=== PATIENT | female | born 2000 | race Caucasian/White ===

== ENCOUNTER 2020-08-31 16:08 | Emergency (ER) | payer OTHER, SELFPAY ==
--- NOTE | ~2020-08-31 | US_ITS ---
EXAMINATION: US OB <=14 wk fetus w TV DATE: 08/31/2020 18:37 INDICATION: Vaginal bleeding TECHNIQUE: Real-time transabdominal and transvaginal obstetric ultrasound. FINDINGS: No prior studies for comparison. The uterus measures 10.6 x 7.2 x 6.9 cm. There is an intrauterine gestational sac, with pole id entified. The crown rump length measures 3.64 cm, which correlates with a estimated gestational age of 10 weeks 4 days. heart tones are identified measuring 169 bpm. There is a right ovarian co rpus luteal cyst. Otherwise, ovaries are unremarkable. IMPRESSION: 1. SL IUP with an EGA of 10 weeks, 4 days (EDC by current ultrasound of 03/25/2021). Reviewed, dictated and finalized at location A. IMPRESSION: 1. SL IUP with an EGA of 10 weeks, 4 days (EDC by current ultrasound of 021).
[2020-08-31 16:12] VITALS: BP 135/77; PULSE 104; RESP 18; TEMP 36.2; O2SAT 100
--- NOTE | 2020-08-31 16:26 | ED.PREGNANCY ---
HPI - General Chief complaint: Vaginal Bleeding Stated complaint: 10 wks and spotting Time Seen by Provider: 08/31/20 16:21 Source: patient Mode of arrival: ambulatory Limitations: no limitations History of Present Illness HPI Narrative: This is a 20 year old female approximately 10wks GA by LMP who presents for evaluation of vaginal bleeding. She states this afternoon she went to the rest room. She noticed bright red blood when she wiped herself with tissue . She states her bleeding has been light. She did not notice any blood when she last went to the restroom. She denies abdominal pain, back pain , lightheadedness or dizziness. She saw her OB last week and she declined an US at that time. Her OBGYN is Dr. Quiñonez. Related Data Home Medications Medication Instructions Recorded Confirmed PNV cmb#95-ferrous fumarate-FA tablet PO 08/31/20 [] aspirin [Aspirin Low Dose] 08/31/20 08/31/20 folic acid 08/31/20 progesterone micronized mg 08/31/20 Allergies Allergy/AdvReac Type Severity Reaction Status Date / Time No Known Allergies Allergy Verified 08/31/20 16:16 Review of Systems Review of Systems: All systems reviewed & are unremarkable except as noted in HPI and below PMFSH Past Medical History Medical History (Updated 08/31/20 @ 18:55 by Emelina Cardozo MD) Patient denies medical problems Social History Social History (Updated 08/31/20 @ 16:30 by Emelina Cardozo MD) Smoking status: Never smoker Gender identity (if verbalized by the patient): Female Exam Const: General: no acute distress and alert Orientation/consciousness: patient oriented x3 Eyes: EOM: EOMs intact bilaterally Resp: Effort & Inspection: normal respiratory effort and no retractions Auscultation: clear to auscultation bilaterally Cardio: Rate: regular rate Rhythm: regular rhythm Heart sounds: no murmurs GI: GI Palp: Yes Soft to palpation, No Tenderness to palpation present (GI) and No Guarding due to palpation present (GI) Auscultation: normal bowel sounds : Speculum Exam - Cervix: Cervical os closed Other: no bleeding, cervix closed Neuro: General: patient oriented x3, moves all extremities and CN's II-XI intact bilaterally Course Reevaluation(s) Reevaluation #1: I reviewed with patient US findings. She will do pelvic rest and follow up with OBGYN Date: 08/31/20 Time: 18:53 Vital Signs Vital signs: Vital Signs Temperature 97.1 F L 08/31/20 16:12 Pulse Rate 104 H 08/31/20 16:12 Respiratory Rate 18 08/31/20 16:12 Blood Pressure 135/77 08/31/20 16:12 Pulse Oximetry 100 08/31/20 16:12 Temperature 97.1 F L 08/31/20 16:12 Pulse Rate 88 08/31/20 17:11 Respiratory Rate 18 08/31/20 16:12 Blood Pressure 131/79 08/31/20 17:11 Pulse Oximetry 100 08/31/20 16:12 MDM - OB/Uterine Contractions Lab Data Attestation: I reviewed the patient's lab results. Result diagrams: 08/31/20 17:16 Labs: Lab Results 08/31/20 08/31/20 08/31/20 Range/Units 17:16 17:16 17:16 WBC 11.8 H (4.5-10.0) K/mm3 RBC 4.35 (4.2-5.4) M/mm3 Hgb 11.8 L (12.0-15.0) g/dL Hct 36.5 L (37.0-47.0) % MCV 83.9 (80-100) fl MCH 27.1 (26-34) pg MCHC 32.3 (32-36) g/dl RDW 16.8 H (11.5-14.5) % Plt Count 277 (150-375) k/mm3 MPV 9.6 (7.4-10.4) fl Immature Gran % (Auto) 0.3 (0-0.5) % Neut % (Auto) 71.1 (45.5-73.1) % Lymph % (Auto) 19.9 (18.3-44.2) % [place] % (Auto) 7.6 (2.6-8.5) % Eos % (Auto) 0.8 (0-4.4) % Baso % (Auto) 0.3 (0.2-1.2) % Lymph # (Auto) 2.35 (0.9-3.2) K/mm3 [place] # (Auto) 0.9 H (0.1-0.6) K/mm3 Eos # (Auto) 0.1 (0-0.3) K/mm3 Baso # (Auto) 0.0 (0.0-0.1) K/mm3 Abs Immat Gran (auto) 0.04 H (0.00-0.031) K/mm3 Absolute Neuts (auto) 8.4 H (1.3-6.7) K/mm3 Absolute Nucleated RBC 0.0 (0.0-0.012) K/mm3 Nucleated RBC % 0.0 (0.0-0.2)
[2020-08-31 17:08] VITALS: BP 124/81; PULSE 73
[2020-08-31 17:10] VITALS: BP 127/64; PULSE 74
[2020-08-31 17:11] VITALS: BP 131/79; PULSE 88
[2020-08-31 17:22] LABS: Basophils Percent Auto 0.3 % (0.2-1.2); Eosinophils Absolute Auto 0.1 K/mm3 (0-0.3); Eosinophils Percent Auto 0.8 % (0-4.4); Hematocrit 36.5 % (37.0-47.0); Hemoglobin 11.8 g/dL (12.0-15.0); Immature Granulocyte Absolute 0.04 K/mm3 (0.00-0.031); Immature Granulocyte Percent A 0.3 % (0-0.5); Lymphocytes Absolute Auto 2.35 K/mm3 (0.9-3.2); Lymphocytes Percent Auto 19.9 % (18.3-44.2); Mean Corpuscular HGB Conc 32.3 g/dl (32-36); Mean Corpuscular Hemoglobin 27.1 pg (26-34); Mean Corpuscular Volume 83.9 fl (80-100); Mean Platelet Volume 9.6 fl (7.4-10.4); Monocytes Absolute Auto 0.9 K/mm3 (0.1-0.6); Monocytes Percent Auto 7.6 % (2.6-8.5); Neutrophils Absolute Auto 8.4 K/mm3 (1.3-6.7); Neutrophils Percent Auto 71.1 % (45.5-73.1); Platelet Count Result 277 k/mm3 (150-375); Red Blood Count 4.35 M/mm3 (4.2-5.4); Red Cell Distribution Width 16.8 % (11.5-14.5); White Blood Count 11.8 K/mm3 (4.5-10.0)
[2020-08-31 19:10] VITALS: BP 122/84; PULSE 82; RESP 20; O2SAT 99
== END 2020-08-31 19:13 | disposition home or self-care (01) ==
PROVIDERS: Emergency Provider General Practice
DX: O20.9 Hemorrhage in early pregnancy, unspecified (principal); Z3A.10 10 weeks gestation of pregnancy
CPT/HCPCS: 36415; 76801; 76817; 81025; 84702; 85025; 85461; 99284

== ENCOUNTER 2020-09-23 13:32 | Outpatient (CLI) | payer OTHER, SELFPAY ==
--- NOTE | ~2020-09-23 | US_ITS ---
EXAMINATION: US OB follow up DATE: 09/23/2020 14:01 INDICATION: Routine care, second trimester TECHNIQUE: Real-time ultrasound of the pelvis was performed. The interpreting radiologist was not pre sent for the study. COMPARISON: 08/31/2020 FINDINGS: There is a single living fetus in variable presentation. The placenta is posterior. c ardiac activity and movement are noted. heart rate is 144 beats per minute (bpm). The amn iotic fluid index is subjectively normal. The following biometric data were obtained: Biparietal diameter (BPD): 2.5 cm; head circumference (HC): 9.7 cm; abdominal circumference (AC): 8.0 cm; femur length (FL): 1.3 cm. These measurements are concordant. Estimated weight is 91 g +/- 13 g, which correlates with the 57th percentile when 03/25/2021 is used as estimated date of delivery. As single measurements, these parameters are each equal to the following estimated gestational ages w ith ranges of +/- 2 standard deviations: BPD: 14 weeks 3 days +/- 1 weeks 1 days. HC: 14 weeks 4 days +/- 1 weeks 1 days. AC: 14 weeks 3 days +/- 1 weeks 5 days. FL: 13 weeks 6 days +/- 1 weeks 3 days. estimated gestational age based solely on measurements from this exam is 14 weeks 2 days +/- 1 weeks 0 days. IMPRESSION: 1. Single living fetus in variable presentation. 2. Estimated weight is 91 g +/- 13 g, which correlates with the 57th percentile when 03/25/2021 is used as estimated date of delivery. Reviewed, dictated and finalized at location A. IMPRESSION: 1. Single living fetus in variable presentation. 2. Estimated weight is 91 g +/- 13 g, which correlates with the 57th perc entile when 03/25/2021 is used as estimated date of delivery.
== END 2020-09-23 13:33 | disposition home or self-care (01) ==
PROVIDERS: Visit Provider Obstetrics & Gynecology
DX: Z34.92 Encounter for supervision of normal pregnancy, unspecified, second trimester (principal); Z3A.14 14 weeks gestation of pregnancy
CPT/HCPCS: 76816

== ENCOUNTER 2021-02-10 13:00 | Outpatient (CLI) | payer OTHER, SELFPAY ==
--- NOTE | ~2021-02-10 | US_ITS ---
EXAMINATION: US OB follow up EXAM DATE: 02/10/2021 13:54 INDICATION: Encounter for supervision of normal follow-up. 3rd trimester. TECHNIQUE: Pelvic obstetrical transabdominal sonogram was performed by a technologist. There are mu ltiple grayscale and Doppler images available for interpretation. Comparison is made to prior examina tion from 09/23/2020. FINDINGS: There is a single fetus identified in vertex presentation with a heart rate of 116 beats pe r minute. The placenta is located in the posterior fundal position. There is no sonographic evidence of retroplacental hemorrhage identified. AMNIOTIC FLUID INDEX Quadrant 1: 0 cm Quadrant 2: 2.1 cm Quadrant 3: 1.9 cm Quadrant 4: 2.3 cm Amniotic fluid index: 6.9 cm. (The 5th -- 95th percentile range is 8.3-24.5). BIOMETRIC DATA: Biparietal diameter (BPD): 8.4 cm ----------------> 34 weeks 0 days. Head circumference (HC): 29.6 cm ----------------> 32 weeks 5 days. Abdominal circumference (AC): 28.1 cm ----------> 32 weeks 1 day. Femur length (FL): 6.6 cm --------------------------> 33 weeks 6 days. These measurements are concordant. HC/AC ratio is 1.06 (The 5th -- 95th percentile range is 0.96-1.11. Estimated weight is 2064 g +/- 310 g. This is the 17th percentile when the currently reported clinical gestation age 33 weeks 6 days, clinical estimated date of delivery (JOB-OPE) 03/25/2021 is u sed. estimated gestational age based on measurements from this exam is 33 weeks 1 day, with an estimated date of delivery (JOB-AUA) 03/30. IMPRESSION: 1. Single fetus in vertex presentation with heart rate 116 beats per minute. 2. Estimated weight of 2064 grams, 17th percentile using the currently reported clinical gesta tion age of 33 weeks 6 days, JOB(OPE) 03/25. 3. Oligohydramnios, ANU 6.9 cm. Reviewed, dictated and finalized at location A. IMPRESSION: 1. Single fetus in vertex presentation with heart rate 116 beats per minute. 2. Estimated weight of 2064 grams, 17th percentile using the currently r eported clinical gestation age of 33 weeks 6 days, JOB(OPE) 03/25. 3. Oligohydramnios, ANU 6.9 cm.
== END 2021-02-10 13:01 | disposition home or self-care (01) ==
LOC: ANHIMG 13:06
PROVIDERS: Visit Provider Physician Assistant
DX: Z34.93 Encounter for supervision of normal pregnancy, unspecified, third trimester (principal); Z3A.33 33 weeks gestation of pregnancy
CPT/HCPCS: 76816

== ENCOUNTER 2021-02-10 23:10 | Outpatient (CLI) | payer OTHER, SELFPAY ==
[2021-02-10 23:32] VITALS: BP 118/79; PULSE 70
[2021-02-10 23:37] VITALS: TEMP 36.6
[2021-02-11] VITALS: BP 109/67; PULSE 63
[2021-02-11 00:07] LABS: Add Urine Microscopic? YES; Appearance Urine Clear (Clear); Bilirubin Urine Negative (Negative); Blood Urine Negative (Negative); Color Urine Yellow (Yellow); Glucose Urine UA 3+ mg/dL (Negative); Ketones Urine Negative (Negative); Leukocyte Esterase Ur Negative LEU/UL (NEGATIVE); Mucus Urine Heavy /lpf; Nitrate Urine Negative (Negative); Protein Urine Negative (Negative); RBC Urine 0-2 /hpf (0-2); Specific Grav Ur 1.025 (1.001-1.035); Squamous Epithelial Cell Urine Rare /hpf (Few); WBC Urine 0-3 /hpf (0-3)
[2021-02-11 00:09] LABS: Creatinine Urine 159.7 mg/dL
[2021-02-11 00:10] LABS: Alanine Aminotransferase 12 U/L (4-35); Albumin Level 3.6 g/dL (3.5-5.1); Alkaline Phosphatase 151 U/L (38-126); Anion Gap 6 mmol/L (8-16); Aspartate Amino Transferase 19 U/L (14-36); Bilirubin,Total 0.2 mg/dL (0.2-1.3); Blood Urea Nitrogen 7 mg/dL (7-17); Calcium 9.1 mg/dL (8.4-10.2); Carbon Dioxide 23 mmol/L (22-30); Chloride 108 mmol/L (98-107); Estimated Glomerular Filt Rate > 60; Glucose 119 mg/dL (65-110); Potassium 3.8 mmol/L (3.4-5.0); Sodium 137 mmol/L (137-145); Uric Acid 3.1 mg/dL (2.5-7.5)
[2021-02-11 00:16] LABS: Basophils Absolute Auto 0.1 K/mm3 (0.0-0.1); Basophils Percent Auto 0.5 % (0.2-1.2); Eosinophils Absolute Auto 0.1 K/mm3 (0-0.3); Eosinophils Percent Auto 0.9 % (0-4.4); Hematocrit 30.3 % (37.0-47.0); Hemoglobin 10.1 g/dL (12.0-15.0); Immature Granulocyte Absolute 0.26 K/mm3 (0.00-0.031); Lymphocytes Percent Auto 20.8 % (18.3-44.2); Mean Corpuscular HGB Conc 33.3 g/dl (32-36); Mean Corpuscular Hemoglobin 30.3 pg (26-34); Mean Platelet Volume 9.5 fl (7.4-10.4); Monocytes Absolute Auto 1.4 K/mm3 (0.1-0.6); Monocytes Percent Auto 10.5 % (2.6-8.5); Neutrophils Absolute Auto 8.5 K/mm3 (1.3-6.7); Neutrophils Percent Auto 65.3 % (45.5-73.1); Platelet Count Result 266 k/mm3 (150-375); Red Blood Count 3.33 M/mm3 (4.2-5.4); Red Cell Distribution Width 14.7 % (11.5-14.5)
[2021-02-11 00:30] VITALS: BP 103/59; PULSE 63
[2021-02-11 01:03] LABS: Total Protein Urine Random < 5 mg/dL; Ur Ttl Prot Creatinine Ratio < 0.03 mg/mg (0-0.20)
== END 2021-02-11 01:14 | disposition home or self-care (01) ==
LOC: ANHOBOP 23:18 → ANHOBPP 02-16 06:14
PROVIDERS: Obstetrics & Gynecology; Visit Provider Obstetrics & Gynecology
DX: R51.9 Headache, unspecified (principal); H53.8 Other visual disturbances
CPT/HCPCS: 36415; 59025; 76816; 80053; 81001; 82570; 84156; 84550; 85025; 87086; 87088; 99199

== ENCOUNTER 2021-03-18 06:18 | Inpatient (IN) | payer OTHER, SELFPAY ==
[2021-03-18] VITALS (28 sets, daily range): BP systolic 78–149; BP diastolic 41–87; PULSE 59–157; TEMP 36.5–37.1; BMI 38.1
--- NOTE | 2021-03-18 05:45 | PM.IMHP ---
H&P: HPI History of Present Illness Date/Time: 03/18/21 05:45 21 yo F with hx of MTHFR, previous miscarriage, HSV, TV, Smokimg, MDD, and methamphetamine use presents at 39w3d for elective induction of labor using pitocin protocol with favorable raymond score.I explained her condition procedure and risks involved including risks of shoulder dystocia or maternal or indications for delivery. The risks discussed include bleeding infection injury to bladder bowel baby pelvic vessels DVT pneumonia wound infection UTI the risk of anesthesia and the risk of hemorrhage. She understands all this accepts and agrees to proceed. Her care began August 2020 she had a total 18. visits she is being followed by my Physician associates and then transferred to my care the end of . was monitored with serial ultrasounds showing appropriate for gestational age growth a negative anomaly screen. Noninvasive testing showed negative genetic abnormalities with a female infant identified. She received the MTHFR treatment during her including B12 injections monthly and folic acid supplementation as well as aspirin therapy to decrease the risk -induced hypertension. She was on progesterone due to a previous miscarriage and on antiviral therapy acyclovir for her HSV. She had a positive test for drug abuse in the beginning of the but has been clean to the end of and will be retested upon admission for delivery. She had diabetes screen abnormal 153 but a 3 hour glucose tolerance test was normal. her group B strep test were all negative as well as her HIV and RPR negative. She did have Trichomonas and Linnea glabrata treated in the 3rd trimester with test of cure negative She now has a favorable cervix 2 cm 90% -2 station soft and anterior with a Raymond score of 7 we were able to use the Pitocin protocol. She is having a girl named-Ivee, she wants to try natural childbirth but she is open to epidural, she wants to bottle feed, cost specialist- SIF, PPBC- depo. Chief Complaint: term favorable Raymond score elective induction of labor Review of Systems Review of Systems: All systems reviewed & are unremarkable except as noted in HPI and below Constitutional: Constitutional: Reports no additional constitutional complaints Eyes: Eyes: Reports no additional eye complaints ENT: Reports system reviewed and no additional complaints, except as documented Cardiovascular: Cardiovascular: Reports no additional cardiovascular complaints Respiratory: Respiratory: Reports no additional respiratory complaints Gastrointestinal: Gastrointestinal: Reports no additional gastrointestinal complaints Genitourinary: Genitourinary: Reports no additional female genitourinary complaints Musculoskeletal: Musculoskeletal: Reports no additional musculoskeletal complaints Integumentary/Breasts: Skin/Breast: Reports system reviewed and no additional complaints, except as docu Neurologic: Reports system reviewed and no additional complaints, except as documented Psychiatric: Psychiatric: Reports no additional psychiatric complaints Endocrine: Endocrine: Reports no additional endocrine complaints Hematologic/Lymphatic: Hematologic/Lymphatic: Reports no additional hematologic/lymphatic complaints Allergic/Immunologic: Allergic/Immunologic: Reports no additional allergic/immunologic complaints PMFSH Past Medical History Medical History Generalized anxiety disorder Genital HSV on acyclovir antiviral therapy Heterozygous MTHFR mutation [id number] History of candidiasis of vagina Linnea glabrata History of methamphetamine use denies use states exposed at home from mother History of miscarriage 01/11/[id number], Spontaneous no D&C required History of trichomonal vaginitis Major depressive disorder Smoker Family History Family History (Updated 03/10/21 @ 15:35
--- NOTE | 2021-03-18 06:03 | WPDHPUPDATE1 ---
History and Physical Update Update Date/Time: 03/18/21 06:03 History and Physical has been reviewed, including an updated exam of the patient. There are NO changes in the patient's condition. Risks, benefits, and alternatives have been discussed and questions answered. Patient agrees to proceed with procedure. 21 yo F with hx of MTHFR, previous miscarriage, HSV, TV, Smokimg, MDD, and methamphetamine use presents at 39w3d for elective induction of labor using pitocin protocol with favorable raymond score.I explained her condition procedure and risks involved including risks of shoulder dystocia or maternal or indications for delivery. The risks discussed include bleeding infection injury to bladder bowel baby pelvic vessels DVT pneumonia wound infection UTI the risk of anesthesia and the risk of hemorrhage. She understands all this accepts and agrees to proceed. Her care began August 2020 she had a total 18. visits she is being followed by my Physician associates and then transferred to my care the end of . was monitored with serial ultrasounds showing appropriate for gestational age growth a negative anomaly screen. Noninvasive testing showed negative genetic abnormalities with a female identified. She received the MTHFR treatment during her including B12 injections monthly and folic acid supplementation as well as aspirin therapy to decrease the risk -induced hypertension. She was on progesterone due to a previous miscarriage and on antiviral therapy acyclovir for her HSV. She had a positive test for drug abuse in the beginning of the but has been clean to the end of and will be retested upon admission for delivery. She had diabetes screen abnormal 153 but a 3 hour glucose tolerance test was normal. her group B strep test were all negative as well as her HIV and RPR negative. She did have Trichomonas and Linnea glabrata treated in the 3rd trimester with test of cure negative She now has a favorable cervix 2 cm 90% -2 station soft and anterior with a Raymond score of 7 we were able to use the Pitocin protocol. 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
--- NOTE | 2021-03-18 08:00 | LDADM ---
This patient, Azucena Nolen, was admitted to Labor/Delivery/Recovery 103 on 03/18/21 at 06:18. Plans for labor, pain management and were discussed with patient. Patient/family oriented to hospital policies and general routines including ID bracelet, bed and alarms, visiting hours, pain management, procedures, bathroom and other care routines, personal items, smoking policy, room service/diet and guest tray routines, security routines, and visiting hours. Patient/Family are encouraged to report perceived risks to care and to ask questions if they do not understand what they are told or what they should do. See OBIX for further documentation.
[2021-03-18] MEDS: LACTATED RINGERS 1,000 ML 125 ML IV CONT ×2 (08:11→15:41)
[2021-03-18] MEDS: OXYTOCIN 30 UNITS/NS 500 ML 30 UNITS/500 ML BAG 4 UNITS IV CONT (08:16)
[2021-03-18 08:26] LABS: Basophils Absolute Auto 0.1 K/mm3 (0.0-0.1); Basophils Percent Auto 0.6 % (0.2-1.2); Eosinophils Absolute Auto 0.1 K/mm3 (0-0.3); Eosinophils Percent Auto 0.9 % (0-4.4); Hematocrit 31.8 % (37.0-47.0); Hemoglobin 10.4 g/dL (12.0-15.0); Immature Granulocyte Absolute 0.12 K/mm3 (0.00-0.031); Immature Granulocyte Percent A 1.2 % (0-0.5); Lymphocytes Absolute Auto 1.91 K/mm3 (0.9-3.2); Lymphocytes Percent Auto 18.6 % (18.3-44.2); Mean Corpuscular HGB Conc 32.7 g/dl (32-36); Mean Corpuscular Hemoglobin 28.6 pg (26-34); Mean Corpuscular Volume 87.4 fl (80-100); Mean Platelet Volume 9.6 fl (7.4-10.4); Monocytes Absolute Auto 1.1 K/mm3 (0.1-0.6); Monocytes Percent Auto 10.6 % (2.6-8.5); Neutrophils Percent Auto 68.1 % (45.5-73.1); Platelet Count Result 299 k/mm3 (150-375); Red Blood Count 3.64 M/mm3 (4.2-5.4); Red Cell Distribution Width 15.3 % (11.5-14.5); White Blood Count 10.3 K/mm3 (4.5-10.0)
[2021-03-18 10:19] LABS: Amphetamine Screen Urine Negative (Negative); Barbiturate Screen Urine Negative (Negative); Benzodiazepines Screen Urine Negative (Negative); Cannabinoid Screen Urine Positive (Negative); Cocaine Screen Urine Negative (Negative); Methadone Screen Urine Negative (Negative); Opiate Screen Urine Negative (Negative); Phencyclidine Screen Urine Negative (Negative)
[2021-03-19 06:22] LABS: Rapid Plasma Reagin Non-Reactive (NonReactive)
--- NOTE | 2021-03-20 10:26 | PM.OBTRLD ---
OB - Triage/Final Diagnosis Visit Information Comments/Additional reasons for admission: I have assessed the risk for this patient, Azucena Nolen, and determined that she would benefit from observation care. Evaluation Laboratory results: Laboratory Tests 03/18/21 03/18/21 03/18/21 07:49 07:49 07:49 WBC 10.3 H RBC 3.64 L Hgb 10.4 L Hct 31.8 L MCV 87.4 MCH 28.6 MCHC 32.7 RDW 15.3 H Plt Count 299 MPV 9.6 Immature Gran % (Auto) 1.2 H Neut % (Auto) 68.1 Lymph % (Auto) 18.6 [place] % (Auto) 10.6 H Eos % (Auto) 0.9 Baso % (Auto) 0.6 Lymph # (Auto) 1.91 [place] # (Auto) 1.1 H Eos # (Auto) 0.1 Baso # (Auto) 0.1 Abs Immat Gran (auto) 0.12 H Absolute Neuts (auto) 7.0 H Absolute Nucleated RBC 0.0 Nucleated RBC % 0.0 Urine Opiates Screen Urine Methadone Screen Ur Barbiturates Screen Ur Phencyclidine Scrn Ur Amphetamine Screen U Benzodiazepines Scrn Urine Cocaine Screen U Cannabinoids Screen RPR Non-reactive Blood Type O Positive Antibody Screen Negative 03/18/21 07:49 WBC RBC Hgb Hct MCV MCH MCHC RDW Plt Count MPV Immature Gran % (Auto) Neut % (Auto) Lymph % (Auto) [place] % (Auto) Eos % (Auto) Baso % (Auto) Lymph # (Auto) [place] # (Auto) Eos # (Auto) Baso # (Auto) Abs Immat Gran (auto) Absolute Neuts (auto) Absolute Nucleated RBC Nucleated RBC % Urine Opiates Screen Negative Urine Methadone Screen Negative Ur Barbiturates Screen Negative Ur Phencyclidine Scrn Negative Ur Amphetamine Screen Negative U Benzodiazepines Scrn Negative Urine Cocaine Screen Negative U Cannabinoids Screen Positive A RPR Blood Type Antibody Screen Final Diagnosis (1) Failed induction: Code(s): O61.9 - Failed induction of labor, unspecified Status: Acute
--- NOTE | 2021-04-07 16:30 | P.DS_ITS ---
DS: Admitting Diagnosis Discharge Date 03/18/21 Admitting Diagnosis OB - DS: Summary OB Procedures : None OB Procedures Intrapartum: Spontaneous Vag Delivery OB Procedures: : None Time Spent with Patient Time attestation: Total time spent providing and/or coordinating discharge services: Discharge Plan Discharge Attending physician on discharge: aJyce Daniels Discharging Clinician: Jayce Daniels Patient Disposition: Home, Self-Care Activity: as tolerated Diet: as tolerated Discharge Instructions: OB ANTEPARTUM DISCHARGE INSTRUCTIONS This information is given to help you properly care for yourself at home after your discharge from the hospital. Follow these instructions until your doctor tells you otherwise. DIET: Eat Three Well Balanced Meals per Day Drink at Least Eight 8-Ounce Glasses of Caffeine-Free Beverages Daily ACTIVITY: As Tolerated RETURN TO LABOR AND DELIVERY IF YOU HAVE: Any Change In Baby's Normal Movement Pattern Contractions 3-5 Minutes Apart with Increasing Intensity Vaginal Bleeding Contractions may feel like abdominal pain, tightening, cramping, pressure, back ache, or thigh ache. FOLLOW-UP CARE: Call Office and Make Appointment To see Call Dr. Quiñonez's office in am to schedule follow-up appt Valuables released to patient or family? N/A Medications from home returned to patient? N/A I Have Received Information Regarding Effective Home Pain Management I Acknowledge Receipt of and Understand the Above Instructions IF YOU HAVE ANY QUESTIONS REGARDING THESE INSTRUCTIONS, PLEASE CALL [phone]. IF PROBLEMS ARISE, CALL YOUR PROVIDER. IF EMERGENCY CARE IS NEEDED, [facility]S EMERGENCY ROOM IS AVAILABLE 24 HOURS A DAY. Patient Instructions: Antibiotic Form Stand Alone Forms: General Discharge Information Follow-up/Referrals: Brian Quiñonez MD [Physician] - Discharge Medications: Continued escitalopram oxalate 10 mg Tablet 10 mg PO BID RF: 0 PNV cmb#95-ferrous fumarate-FA [] 28 mg iron- 800 mcg tablet 1 tablet PO DAILY RF: 0 No Action ibuprofen 600 mg Tablet 600 mg PO Q6H PRN (Reason: Cramping) Qty: 30 RF: 0 Date of admission: 03/18/21 06:18 Primary Care Provider: PHYSICIAN,BUSINESS ANALYST MANAGER Admitting Provider: Brian Quiñonez Attending physician on admission: Jayce Daniels Condition: Stable
--- NOTE | 2021-04-09 07:31 | PM.OBDSVD ---
DS: Admitting Diagnosis Discharge Date 03/18/21 Admitting Diagnosis OB - DS: Summary OB Procedures : None OB Procedures Intrapartum: Spontaneous Vag Delivery OB Procedures: : None Time Spent with Patient Time attestation: Total time spent providing and/or coordinating discharge services: Discharge Plan Discharge Attending physician on discharge: Jayce Daniels Discharging Clinician: Jayce Daniels Patient Disposition: Home, Self-Care Activity: as tolerated Diet: as tolerated Discharge Instructions: OB ANTEPARTUM DISCHARGE INSTRUCTIONS This information is given to help you properly care for yourself at home after your discharge from the hospital. Follow these instructions until your doctor tells you otherwise. DIET: Eat Three Well Balanced Meals per Day Drink at Least Eight 8-Ounce Glasses of Caffeine-Free Beverages Daily ACTIVITY: As Tolerated RETURN TO LABOR AND DELIVERY IF YOU HAVE: Any Change In Baby's Normal Movement Pattern Contractions 3-5 Minutes Apart with Increasing Intensity Vaginal Bleeding Contractions may feel like abdominal pain, tightening, cramping, pressure, back ache, or thigh ache. FOLLOW-UP CARE: Call Office and Make Appointment To see Call Dr. Quiñonez's office in am to schedule follow-up appt Valuables released to patient or family? N/A Medications from home returned to patient? N/A I Have Received Information Regarding Effective Home Pain Management I Acknowledge Receipt of and Understand the Above Instructions IF YOU HAVE ANY QUESTIONS REGARDING THESE INSTRUCTIONS, PLEASE CALL [phone]. IF PROBLEMS ARISE, CALL YOUR PROVIDER. IF EMERGENCY CARE IS NEEDED, [facility] EMERGENCY ROOM IS AVAILABLE 24 HOURS A DAY. Patient Instructions: Antibiotic Form Stand Alone Forms: General Discharge Information Follow-up/Referrals: Brian Quiñonez MD [Physician] - Discharge Medications: Continued escitalopram oxalate 10 mg Tablet 10 mg PO BID RF: 0 PNV cmb#95-ferrous fumarate-FA [] 28 mg iron- 800 mcg tablet 1 tablet PO DAILY RF: 0 No Action ibuprofen 600 mg Tablet 600 mg PO Q6H PRN (Reason: Cramping) Qty: 30 RF: 0 Date of admission: 03/18/21 06:18 Primary Care Provider: PHYSICIAN,MOTION PICTURE CRITIC Admitting Provider: Brian Quiñonez Attending physician on admission: Jayce Daniels Condition: Stable
--- NOTE | 2021-04-11 08:39 | P.DS_ITS ---
DS: Admitting Diagnosis Discharge Date 03/18/21 Admitting Diagnosis OB - DS: Summary OB Procedures : None OB Procedures Intrapartum: Spontaneous Vag Delivery OB Procedures: : None Time Spent with Patient Time attestation: Total time spent providing and/or coordinating discharge services: Discharge Plan Discharge Attending physician on discharge: Jayce Daniels Discharging Clinician: Jayce Daniels Patient Disposition: Home, Self-Care Activity: as tolerated Diet: as tolerated Discharge Instructions: OB ANTEPARTUM DISCHARGE INSTRUCTIONS This information is given to help you properly care for yourself at home after your discharge from the hospital. Follow these instructions until your doctor tells you otherwise. DIET: Eat Three Well Balanced Meals per Day Drink at Least Eight 8-Ounce Glasses of Caffeine-Free Beverages Daily ACTIVITY: As Tolerated RETURN TO LABOR AND DELIVERY IF YOU HAVE: Any Change In Baby's Normal Movement Pattern Contractions 3-5 Minutes Apart with Increasing Intensity Vaginal Bleeding Contractions may feel like abdominal pain, tightening, cramping, pressure, back ache, or thigh ache. FOLLOW-UP CARE: Call Office and Make Appointment To see Call Dr. Quiñonez's office in am to schedule follow-up appt Valuables released to patient or family? N/A Medications from home returned to patient? N/A I Have Received Information Regarding Effective Home Pain Management I Acknowledge Receipt of and Understand the Above Instructions IF YOU HAVE ANY QUESTIONS REGARDING THESE INSTRUCTIONS, PLEASE CALL [phone]. IF PROBLEMS ARISE, CALL YOUR PROVIDER. IF EMERGENCY CARE IS NEEDED, [facility] EMERGENCY ROOM IS AVAILABLE 24 HOURS A DAY. Patient Instructions: Antibiotic Form Stand Alone Forms: General Discharge Information Follow-up/Referrals: Brian Quiñonez MD [Physician] - Discharge Medications: Continued escitalopram oxalate 10 mg Tablet 10 mg PO BID RF: 0 PNV cmb#95-ferrous fumarate-FA [] 28 mg iron- 800 mcg tablet 1 tablet PO DAILY RF: 0 No Action ibuprofen 600 mg Tablet 600 mg PO Q6H PRN (Reason: Cramping) Qty: 30 RF: 0 Date of admission: 03/18/21 06:18 Primary Care Provider: PHYSICIAN,SLIPCOVER CUTTER Admitting Provider: Brian Quiñonez Attending physician on admission: Jayce Daniels Condition: Stable
--- NOTE | 2021-04-15 08:14 | PM.OBTRLD ---
OB - Triage/Final Diagnosis Visit Information Reason for evaluation: decreased movement Comments/Additional reasons for admission: I have assessed the risk for this patient, Azucena Nolen, and determined that she would benefit from observation care. Evaluation Laboratory results: Laboratory Tests 03/18/21 03/18/21 03/18/21 07:49 07:49 07:49 WBC 10.3 H RBC 3.64 L Hgb 10.4 L Hct 31.8 L MCV 87.4 MCH 28.6 MCHC 32.7 RDW 15.3 H Plt Count 299 MPV 9.6 Immature Gran % (Auto) 1.2 H Neut % (Auto) 68.1 Lymph % (Auto) 18.6 [place] % (Auto) 10.6 H Eos % (Auto) 0.9 Baso % (Auto) 0.6 Lymph # (Auto) 1.91 [place] # (Auto) 1.1 H Eos # (Auto) 0.1 Baso # (Auto) 0.1 Abs Immat Gran (auto) 0.12 H Absolute Neuts (auto) 7.0 H Absolute Nucleated RBC 0.0 Nucleated RBC % 0.0 Urine Opiates Screen Urine Methadone Screen Ur Barbiturates Screen Ur Phencyclidine Scrn Ur Amphetamine Screen U Benzodiazepines Scrn Urine Cocaine Screen U Cannabinoids Screen RPR Non-reactive Blood Type O Positive Antibody Screen Negative 03/18/21 07:49 WBC RBC Hgb Hct MCV MCH MCHC RDW Plt Count MPV Immature Gran % (Auto) Neut % (Auto) Lymph % (Auto) [place] % (Auto) Eos % (Auto) Baso % (Auto) Lymph # (Auto) [place] # (Auto) Eos # (Auto) Baso # (Auto) Abs Immat Gran (auto) Absolute Neuts (auto) Absolute Nucleated RBC Nucleated RBC % Urine Opiates Screen Negative Urine Methadone Screen Negative Ur Barbiturates Screen Negative Ur Phencyclidine Scrn Negative Ur Amphetamine Screen Negative U Benzodiazepines Scrn Negative Urine Cocaine Screen Negative U Cannabinoids Screen Positive A RPR Blood Type Antibody Screen
--- NOTE | 2021-04-21 09:27 | PM.OBTRLD ---
OB - Triage/Final Diagnosis Visit Information Reason for evaluation: threatened labor Comments/Additional reasons for admission: I have assessed the risk for this patient, Azucena Nolen, and determined that she would benefit from observation care. Evaluation Laboratory results: Laboratory Tests 03/18/21 03/18/21 03/18/21 07:49 07:49 07:49 WBC 10.3 H RBC 3.64 L Hgb 10.4 L Hct 31.8 L MCV 87.4 MCH 28.6 MCHC 32.7 RDW 15.3 H Plt Count 299 MPV 9.6 Immature Gran % (Auto) 1.2 H Neut % (Auto) 68.1 Lymph % (Auto) 18.6 [place] % (Auto) 10.6 H Eos % (Auto) 0.9 Baso % (Auto) 0.6 Lymph # (Auto) 1.91 [place] # (Auto) 1.1 H Eos # (Auto) 0.1 Baso # (Auto) 0.1 Abs Immat Gran (auto) 0.12 H Absolute Neuts (auto) 7.0 H Absolute Nucleated RBC 0.0 Nucleated RBC % 0.0 Urine Opiates Screen Urine Methadone Screen Ur Barbiturates Screen Ur Phencyclidine Scrn Ur Amphetamine Screen U Benzodiazepines Scrn Urine Cocaine Screen U Cannabinoids Screen RPR Non-reactive Blood Type O Positive Antibody Screen Negative 03/18/21 07:49 WBC RBC Hgb Hct MCV MCH MCHC RDW Plt Count MPV Immature Gran % (Auto) Neut % (Auto) Lymph % (Auto) [place] % (Auto) Eos % (Auto) Baso % (Auto) Lymph # (Auto) [place] # (Auto) Eos # (Auto) Baso # (Auto) Abs Immat Gran (auto) Absolute Neuts (auto) Absolute Nucleated RBC Nucleated RBC % Urine Opiates Screen Negative Urine Methadone Screen Negative Ur Barbiturates Screen Negative Ur Phencyclidine Scrn Negative Ur Amphetamine Screen Negative U Benzodiazepines Scrn Negative Urine Cocaine Screen Negative U Cannabinoids Screen Positive A RPR Blood Type Antibody Screen
== END 2021-03-18 17:46 | disposition home or self-care (01) | DRG 566 ==
PROVIDERS: Admitting Provider Obstetrics & Gynecology; Visit Provider Obstetrics & Gynecology
DX: O61.9 Failed induction of labor, unspecified (principal); Z3A.39 39 weeks gestation of pregnancy; O99.333 Smoking (tobacco) complicating pregnancy, third trimester; F17.210 Nicotine dependence, cigarettes, uncomplicated; O98.313 Other infections with a predominantly sexual mode of transmission complicating pregnancy, third trimester; A60.00 Herpesviral infection of urogenital system, unspecified; O99.283 Endocrine, nutritional and metabolic diseases complicating pregnancy, third trimester; E72.12 Methylenetetrahydrofolate reductase deficiency
CPT/HCPCS: 36415; 80307; 85025; 86592; 86850; 86900; 86901; J2590; J7120

== ENCOUNTER 2021-03-24 11:44 | Inpatient (IN) | payer OTHER, SELFPAY ==
[2021-03-24] VITALS (57 sets, daily range): BP systolic 99–149; BP diastolic 57–107; PULSE 62–150; RESP 18; TEMP 36.3–36.8; O2SAT 95–100; BMI 38.2
[2021-03-24] MEDS: LACTATED RINGERS 1,000 ML 125 ML IV CONT ×2 (12:30→13:15)
[2021-03-24 12:33] LABS: Basophils Absolute Auto 0.1 K/mm3 (0.0-0.1); Basophils Percent Auto 0.4 % (0.2-1.2); Eosinophils Absolute Auto 0.1 K/mm3 (0-0.3); Eosinophils Percent Auto 0.6 % (0-4.4); Hematocrit 34.8 % (37.0-47.0); Hemoglobin 11.3 g/dL (12.0-15.0); Immature Granulocyte Absolute 0.13 K/mm3 (0.00-0.031); Lymphocytes Absolute Auto 1.83 K/mm3 (0.9-3.2); Lymphocytes Percent Auto 14.6 % (18.3-44.2); Mean Corpuscular HGB Conc 32.5 g/dl (32-36); Mean Corpuscular Hemoglobin 28.8 pg (26-34); Mean Corpuscular Volume 88.5 fl (80-100); Mean Platelet Volume 9.3 fl (7.4-10.4); Monocytes Absolute Auto 1.1 K/mm3 (0.1-0.6); Neutrophils Absolute Auto 9.3 K/mm3 (1.3-6.7); Neutrophils Percent Auto 74.4 % (45.5-73.1); Platelet Count Result 295 k/mm3 (150-375); Red Blood Count 3.93 M/mm3 (4.2-5.4); Red Cell Distribution Width 15.4 % (11.5-14.5); White Blood Count 12.5 K/mm3 (4.5-10.0)
--- NOTE | 2021-03-24 12:50 | LDADM ---
This patient, Azucena Nolen, was admitted to Labor/Delivery/Recovery 106 on 03/24/21 at 11:44. Plans for labor, pain management and were discussed with patient. Patient/family oriented to hospital policies and general routines including ID bracelet, bed and alarms, visiting hours, pain management, procedures, bathroom and other care routines, personal items, smoking policy, room service/diet and guest tray routines, security routines, and visiting hours. Patient/Family are encouraged to report perceived risks to care and to ask questions if they do not understand what they are told or what they should do. See OBIX for further documentation.
--- NOTE | 2021-03-24 13:24 | WPDANESEPP ---
Anes - Eval Pre Procedure Procedure: Labor pain management Date/Time: 03/24/21 13:24 Surgeon: Jeremiah Preop Diagnosis: Pain during labor Pre Op Diagnosis: contractions Patient Data Age: 21 Gender: F Height: 1.6 m Weight: 98 kg Last Vital Signs Pulse 88 03/24/21 13:01 BP 133/88 03/24/21 13:01 Allergies Allergy/AdvReac Type Severity Reaction Status Date / Time No Known Allergies Allergy Verified 08/31/20 16:16 Home Medications Medication Instructions Recorded Confirmed Type PNV cmb#95-ferrous fumarate-FA 1 tablet PO DAILY 08/31/20 03/24/21 History [] acyclovir 800 mg PO DAILY 02/10/21 03/24/21 History escitalopram oxalate 10 mg PO BID 03/10/21 03/24/21 History acetaminophen [Tylenol] 650 mg PO Q4H PRN 03/18/21 03/18/21 History Laboratory Tests 03/24/21 03/24/21 03/24/21 12:26 12:26 12:26 WBC 12.5 K/mm3 H K/mm3 (4.5-10.0) RBC 3.93 M/mm3 L M/mm3 (4.2-5.4) Hgb 11.3 g/dL L g/dL (12.0-15.0) Hct 34.8 % L % (37.0-47.0) MCV 88.5 fl fl (80-100) MCH 28.8 pg pg (26-34) MCHC 32.5 g/dl g/dl (32-36) RDW 15.4 % H % (11.5-14.5) Plt Count 295 k/mm3 k/mm3 (150-375) MPV 9.3 fl fl (7.4-10.4) Immature Gran % (Auto) 1.0 % H % (0-0.5) Neut % (Auto) 74.4 % H % (45.5-73.1) Lymph % (Auto) 14.6 % L % (18.3-44.2) [place] % (Auto) 9.0 % H % (2.6-8.5) Eos % (Auto) 0.6 % % (0-4.4) Baso % (Auto) 0.4 % % (0.2-1.2) Lymph # (Auto) 1.83 K/mm3 K/mm3 (0.9-3.2) [place] # (Auto) 1.1 K/mm3 H K/mm3 (0.1-0.6) Eos # (Auto) 0.1 K/mm3 K/mm3 (0-0.3) Baso # (Auto) 0.1 K/mm3 K/mm3 (0.0-0.1) Abs Immat Gran (auto) 0.13 K/mm3 H K/mm3 (0.00-0.031) Absolute Neuts (auto) 9.3 K/mm3 H K/mm3 (1.3-6.7) Absolute Nucleated RBC 0.0 K/mm3 K/mm3 (0.0-0.012) Nucleated RBC % 0.0 % % (0.0-0.2) RPR Pending Blood Type Pending Antibody Screen Pending : gestational age (EDC 03/22/21) Patient hx anesthesia problems: none Family hx anesthesia problems: none Results Review: All pre-operative results and documents have been reviewed as part of the pre-operative evaluation. 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 Heterozygous MTHFR mutation [id number] History of candidiasis of vagina Linnea glabrata History of methamphetamine use denies use states exposed at home from mother History of miscarriage 01/11/[id number], Spontaneous no D&C required History of trichomonal vaginitis Major depressive disorder Smoker Family History Family History Grandparent Heart disease Sibling PTSD (post-traumatic stress disorder) Anxiety Depression Bipolar 1 disorder Mother Diabetes mellitus type 2, diet-controlled Social History Social History Smoking packs per day: 0.25 Smoking cigarettes per day: 5.0 Years smoked: 6 Smoking pack-years: 1.50 Smoking status: Never smoker Tobacco type: cigarettes Second hand tobacco smoke exposure: Yes Substance use: current Substance use type: marijuana and methamphetamine Other substance usage details: Denies using Methamphetamine- states her mom uses; pt was living with mom Last use: Marijuana on 03/17/21 Additional occupation/education comments: 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
[2021-03-24] MEDS: fentaNYL CITRATE INJ (*CRX) 100 MCG/2 ML VIAL 50 MCG IV PUSH (13:27)
[2021-03-24 13:56] LABS: Amphetamine Screen Urine Negative (Negative); Barbiturate Screen Urine Negative (Negative); Benzodiazepines Screen Urine Negative (Negative); Cannabinoid Screen Urine Positive (Negative); Cocaine Screen Urine Negative (Negative); Methadone Screen Urine Negative (Negative); Opiate Screen Urine Negative (Negative); Phencyclidine Screen Urine Negative (Negative)
--- NOTE | 2021-03-24 15:37 | P.PCNOB_ITS ---
OB - Delivery Note Procedure Route of delivery: Episiotomy description: None Laceration Description: Vaginal - 1st Degree Delivery repair: chromic Specimen: Yes Quantitative Blood Loss (ml): 100 Anesthesia type: Epidural Disposition: floor Narrative: Patient prepped and draped in usual sterile manner for this procedu re. Maternal expulsive efforts readily delivered vertex rest of baby without difficulty. Cord clamped cut placenta delivered spontaneously. Cervix vagina vulva were inspected with no lacerations or tears of significance. There was a small area of separation the vaginal wall which was rendered hemostatic using a [id number] of 2-0 chromic suture. Immediate postoperative condition of mother baby were both excellent. Baby Weeks of gestation at delivery: 40 Infant gender: Female Weight (pounds): 6 Weight (ounces): 1 score one minute: 8 score five minutes: 9
--- NOTE | 2021-03-24 15:37 | WPDOBADMIT ---
Obstetrics - Admit Note Admission Note: record reviewed. No pertinent additions to the history and/or any subsequent changes in the physical findings that are not consistent with the expected course of the were found. Additions to the history and/or subsequent changes in the physical findings follow. None.
--- NOTE | 2021-03-24 15:37 | WPDHPUPDATE1 ---
History and Physical Update Update Date/Time: 03/24/21 15:37 History and Physical has been reviewed, including an updated exam of the patient. There are NO changes in the patient's condition. Risks, benefits, and alternatives have been discussed and questions answered. Patient agrees to proceed with procedure.
[2021-03-24] MEDS: OXYTOCIN 30 UNITS/NS 500 ML 30 UNITS/500 ML BAG 125 UNITS IV CONT (16:03)
[2021-03-24] MEDS: BENZOCAINE 20% AER SPR (*SP) 56 GM CAN 1 SPRAY TOPICAL (17:34)
[2021-03-24] MEDS: LORATADINE 10 MG TABLET PO (17:34)
[2021-03-24] MEDS: WITCH HAZEL 40 PADS 1 PAD TOPICAL (17:34)
[2021-03-24] MEDS: ESCITALOPRAM OXALATE 10 MG TABLET PO (19:35)
[2021-03-25 00:11] VITALS: BP 147/84; PULSE 84; RESP 18; TEMP 36.7; O2SAT 98
[2021-03-25 04:15] VITALS: BP 123/78; PULSE 67; RESP 18; TEMP 36.6; O2SAT 97
[2021-03-25 04:50] LABS: Hemoglobin 9.8 g/dL (12.0-15.0)
[2021-03-25 06:24] LABS: Rapid Plasma Reagin Non-Reactive (NonReactive)
[2021-03-25 07:45] VITALS: BP 129/74; PULSE 78; RESP 18; TEMP 36.5; O2SAT 18
[2021-03-25] MEDS: DOCUSATE SODIUM 100 MG CAPSULE PO ×2 (07:54→17:39)
[2021-03-25] MEDS: POLYSACCHARIDE IRON COMPLEX 150 MG CAPSULE PO ×2 (07:54→17:39)
[2021-03-25] MEDS: ESCITALOPRAM OXALATE 10 MG TABLET PO ×2 (07:56→17:39)
[2021-03-25] MEDS: IBUPROFEN 600 MG TABLET PO ×2 (07:56→17:40)
--- NOTE | 2021-03-25 09:34 | PM.OBDSVD ---
DS: Admitting Diagnosis Discharge Date 03/26/2021 Admitting Diagnosis OB - DS: Summary OB Procedures : None OB Procedures Intrapartum: Spontaneous Vag Delivery OB Procedures: : None Time Spent with Patient Time attestation: Total time spent providing and/or coordinating discharge services: DS: Data Data Completed and Pending Pending studies at discharge: Pending at discharge 03/24/21 15:31 Surgical [PTH] Routine Labs on day of discharge: Labs from last 24 hours 03/25/21 03/24/21 03/24/21 03:36 13:13 12:26 WBC RBC Hgb 9.8 L Hct 31.0 L MCV MCH MCHC RDW Plt Count MPV Immature Gran % (Auto) Neut % (Auto) Lymph % (Auto) [place] % (Auto) Eos % (Auto) Baso % (Auto) Lymph # (Auto) [place] # (Auto) Eos # (Auto) Baso # (Auto) Abs Immat Gran (auto) Absolute Neuts (auto) Absolute Nucleated RBC Nucleated RBC % Urine Opiates Screen Negative Urine Methadone Screen Negative Ur Barbiturates Screen Negative Ur Phencyclidine Scrn Negative Ur Amphetamine Screen Negative U Benzodiazepines Scrn Negative Urine Cocaine Screen Negative U Cannabinoids Screen Positive A RPR Blood Type O Positive Antibody Screen Negative 03/24/21 03/24/21 12:26 12:26 WBC 12.5 H RBC 3.93 L Hgb 11.3 L Hct 34.8 L MCV 88.5 MCH 28.8 MCHC 32.5 RDW 15.4 H Plt Count 295 MPV 9.3 Immature Gran % (Auto) 1.0 H Neut % (Auto) 74.4 H Lymph % (Auto) 14.6 L Roberts % (Auto) 9.0 H Eos % (Auto) 0.6 Baso % (Auto) 0.4 Lymph # (Auto) 1.83 [place] # (Auto) 1.1 H Eos # (Auto) 0.1 Baso # (Auto) 0.1 Abs Immat Gran (auto) 0.13 H Absolute Neuts (auto) 9.3 H Absolute Nucleated RBC 0.0 Nucleated RBC % 0.0 Urine Opiates Screen Urine Methadone Screen Ur Barbiturates Screen Ur Phencyclidine Scrn Ur Amphetamine Screen U Benzodiazepines Scrn Urine Cocaine Screen U Cannabinoids Screen RPR Non-reactive Blood Type Antibody Screen Discharge Plan Discharge Discharging Clinician: Jayce Daniels Patient Disposition: Home, Self-Care Activity: as tolerated Diet: as tolerated Patient Instructions: Antibiotic Form Stand Alone Forms: General Discharge Information Follow-up/Referrals: Jayce Daniels MD [Physician] - 3 Weeks Discharge Medications: New ibuprofen 600 mg Tablet 600 mg PO Q6H PRN (Reason: Cramping) Qty: 30 RF: 0 Continued escitalopram oxalate 10 mg Tablet 10 mg PO BID RF: 0 PNV cmb#95-ferrous fumarate-FA [] 28 mg iron- 800 mcg tablet 1 tablet PO DAILY RF: 0 Discontinued acyclovir 800 mg tablet 800 mg PO DAILY RF: 0 acetaminophen [Tylenol] 325 mg Capsule 650 mg PO Q4H PRN (Reason: Pain) RF: 0 Date of admission: 03/24/21 11:44 Primary Care Provider: PHYSICIAN,FLORAL DESIGNER SALESPERSON Admitting Provider: Jayce Daniels Attending physician on admission: Jayce Daniels Condition: Stable
--- NOTE | 2021-03-25 09:56 | WPDANLDPN2 ---
Anes-Prog Note L&D Date/Time: 03/25/21 09:56 Comfortable throughout: labor and delivery Neuraxial method: epidural Epidural/Spinal procedure site: clean & non-tender Neuro status: Neuro function grossly intact. Cardiovascular status: normal Respiratory status: normal Airway patency: baseline Mental status: baseline Post-Op hydration status: normal Vital Signs: Last Vital Signs Temp 36.5 C 03/25/21 07:45 Pulse 78 03/25/21 07:45 Resp 18 03/25/21 07:45 BP 129/74 03/25/21 07:45 Pulse Ox 18 L 03/25/21 07:45 Pain score (VAS): 0 I/O: Intake & Output 03/24/21 03/25/21 03/25/21 23:59 07:59 15:59 Output Total 75 Balance -75 Post-procedural complaints: none Patient feedback: Patient satisfied with anesthetic care.
[2021-03-25] MEDS: ACETAMINOPHEN 325 MG TABLET 650 MG PO (11:03)
--- NOTE | 2021-03-25 11:16 | PC.NURSE ---
Patient viewed the discharge video Mother & Baby Care, The First Two Weeks . Patient was given the opportunity and encouraged to ask questions. Patient verbalized understanding of information shared and has been given the mother/baby guide for home reference.
[2021-03-25 12:13] VITALS: BP 133/59; PULSE 89; RESP 16; TEMP 36.6; O2SAT 99
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
[2021-03-25 20:27] VITALS: BP 138/85; PULSE 71; RESP 18; TEMP 36.6; O2SAT 100
[2021-03-26 08:20] VITALS: BP 131/74; PULSE 70; RESP 16; TEMP 36.7; O2SAT 100
[2021-03-26] MEDS: IBUPROFEN 600 MG TABLET PO (08:28)
[2021-03-26] MEDS: POLYSACCHARIDE IRON COMPLEX 150 MG CAPSULE PO (08:28)
[2021-03-26] MEDS: ESCITALOPRAM OXALATE 10 MG TABLET PO (08:28)
[2021-03-26] MEDS: DOCUSATE SODIUM 100 MG CAPSULE PO (08:28)
[2021-03-26] MEDS: WITCH HAZEL 40 PADS 1 PAD TOPICAL (08:31)
[2021-03-26] MEDS: BENZOCAINE 20% AER SPR (*SP) 56 GM CAN 1 SPRAY TOPICAL (08:31)
--- NOTE | 2021-03-26 12:02 | PC.NURSE ---
DCFS here to see parents. Patient cleared to go home with baby.
[2021-03-26] MEDS: ACETAMINOPHEN 325 MG TABLET 650 MG PO (14:30)
--- NOTE | 2021-03-26 14:30 | PC.NURSE ---
Pt discharge instructions provided via one to one discussion, mom baby care guide book and demonstrations. PT and significant other both recipients of instructions and no barriers to learning identified. Pt verbalized understanding of such care.
--- NOTE | 2021-03-26 14:58 | PC.NURSE ---
PT discharged to home ambulatory accompanied by significant other and and taken to waiting car. follow up appts confirmed
[2021-03-27 08:31] VITALS: BP 125/72; PULSE 74; RESP 20; TEMP 37.1; O2SAT 98
--- NOTE | 2021-03-28 07:42 | P.DS_ITS ---
DS: Admitting Diagnosis Discharge Date 03/26/21 Admitting Diagnosis OB - DS: Summary OB Procedures : None OB Procedures Intrapartum: Spontaneous Vag Delivery OB Procedures: : None Time Spent with Patient Time attestation: Total time spent providing and/or coordinating discharge services: DS: Data Data Completed and Pending Pending studies at discharge: Pending at discharge 03/24/21 15:31 Surgical [PTH] Routine Discharge Plan Discharge Discharging Clinician: Jayce Daniels Patient Disposition: Home, Self-Care Activity: as tolerated Diet: as tolerated Discharge Instructions: Education: Mom and Baby Guide Given to: Mother Follow-Up: Call your delivering provider's office for an appointment to be seen in: 3 weeks Mom and baby should come to the [facility] for the follow-up appointment. Appointment Date/Time: March 27, 2021 at 9:00 am What to expect at your follow-up visit: Physical Assessment Call [phone] if you are unable to keep your appointment time. BREAST CARE: * Wear a snug supportive bra. * For engorgement discomfort: Bottle Feeding: * May apply ice packs EPISIOTOMY/PERINEAL CARE: * Until bleeding stops, use your trevin bottle after urinating * Change your pad frequently throughout the day * You may take sitz baths several times a day (fill your bathtub with warm water and soak for 20 minutes.) Do NOT bathe in the water * No tub baths until seen by your physician - You may shower ACTIVITY: * Rest as much as possible. * Do not exercise or lift anything heavier than your baby (such as laundry or other children.) * Avoid stairs or driving as much as possible. * Do not put anything into the vagina. No douching, tampons, or sexual activity until seen by physician. NOTIFY PHYSICIAN IF YOU HAVE ANY QUESTIONS OR IF ANY OF THE FOLLOWING SYMPTOMS OCCUR: * If your episiotomy or incision becomes red, swollen, or more painful than what you have experienced in the hospital. * If your vaginal bleeding becomes foul smelling. * If your vaginal bleeding becomes more heavy than a period or if your bleeding changes from pink to bright red. However, you may pass an occasional walnut- sized clot once or twice for the first week . * If you experience a sharp, shooting pain in you calves. * If you discover a hard, reddened area on your breast or if you experience flu- like symptoms. DIET: * Eat regular, well-balanced meals. * Drink plenty of fluids daily. If , drink to thirst. Stand Alone Forms: General Discharge Information Follow-up/Referrals: Jayce Daniels MD [Physician] - 3 Weeks Discharge Medications: New ibuprofen 600 mg Tablet 600 mg PO Q6H PRN (Reason: Cramping) Qty: 30 RF: 0 Continued escitalopram oxalate 10 mg Tablet 10 mg PO BID RF: 0 PNV cmb#95-ferrous fumarate-FA [] 28 mg iron- 800 mcg tablet 1 tablet PO DAILY RF: 0 Discontinued acyclovir 800 mg tablet 800 mg PO DAILY RF: 0 acetaminophen [Tylenol] 325 mg Capsule 650 mg PO Q4H PRN (Reason: Pain) RF: 0 Date of admission: 03/24/21 11:44 Primary Care Provider: PHYSICIAN,CARPENTER REPAIR Admitting Provider: Jayce Daniels Attending physician on admission: Jayce Daniels Condition: Stable
== END 2021-03-26 14:58 | disposition home or self-care (01) | DRG 560 ==
LOC: ANHLDR 12:18 → ANHOB2 19:54
PROVIDERS: Admitting Provider Obstetrics & Gynecology; Visit Provider Obstetrics & Gynecology
DX: O77.0 Labor and delivery complicated by meconium in amniotic fluid (principal); O70.0 First degree perineal laceration during delivery; Z3A.40 40 weeks gestation of pregnancy; Z37.0 Single live birth
CPT/HCPCS: 36415; 80307; 84112; 85014; 85018; 85025; 86592; 86850; 86900; 86901; 88307; A9270; J2590; J2795; J3010; J7120